=== PATIENT | male | born 1985 | race Caucasian/White ===

== ENCOUNTER 2016-11-02 23:31 | Emergency (ER) | payer OTHER ==
[~2016-11-02] VITALS: Ht 172.7 cm; Wt 118.2 kg
--- OUTSIDE RECORDS SUMMARY | 2016-11-02 23:35 | XMS REPORT | Continuity of Care Document ---
Author Author [facility] Address Unknown Phone Unavailable Allergies Active Description Code Type Severity Reaction Onset Reported/Identified Relationship to Patient Clinical Status Yes cefaclor [id number] Drug Allergy Unknown N/A 03/09/2015 Medications Problems Date Dx Coded Attending Type Code Diagnosis Diagnosed By 03/09/2015 NIYAH LOVE DO Ot 354.0 CARPAL TUNNEL SYNDROME 03/09/2015 NIYAH LOVE DO Ot 729.89 [facility] Procedures Results Encounters ACCT No. Visit Date/Time Discharge Status Pt. Type Provider Facility Loc./Unit Complaint [id number] 03/09/2015 07:58:00 2014 08:33:00 DIS Emergency LOVENIYAH HOOK DO [facility] ED
--- OUTSIDE RECORDS SUMMARY | 2016-11-02 23:38 | XMS REPORT | Continuity of Care Document ---
Author Author [facility] Address Unknown Phone Unavailable Allergies Active Description Code Type Severity Reaction Onset Reported/Identified Relationship to Patient Clinical Status Yes cefaclor [id number] Drug Allergy Unknown N/A 03/09/2015 Medications Problems Date Dx Coded Attending Type Code Diagnosis Diagnosed By 03/09/2015 NIYAH LOVE DO Ot 354.0 CARPAL TUNNEL SYNDROME 03/09/2015 NI[facility] LOVE [facility] Procedures Results Encounters ACCT No. Visit Date/Time Discharge Status Pt. Type Provider Facility Loc./Unit Complaint [id number] 03/09/2015 07:58:00 2014 08:33:00 DIS Emergency LOVENIYAH HOOK DO [facility] ED
--- NOTE | 2016-11-03 01:00 | NUR ---
Pt admitted to ER room 7 with c/o LUQ abd pain with nausea. Pt describes pain as burning with onset mireya. 1800 this evening (11/02). Pt rated pain at 7-8/10. Now reports it has subsided a bit, rates at 3/10.
[2016-11-03] MEDS ORDERED: SODIUM CHLORIDE FLUSH 10 ML SYR IV PRN (01:35)
[2016-11-03] MEDS ORDERED: SODIUM CHLORIDE FLUSH 3 ML SYR IV PRN (01:35)
[2016-11-03 01:55] LABS: BASOPHILS % (AUTO) 0 % (0-2); EOSINOPHILS # (AUTO) 0.1 10^3uL; EOSINOPHILS % (AUTO) 1 % (0-4); LYMPHOCYTES # (AUTO) 1.7 X10^3; MEAN CORPUSCULAR HEMOGLOBIN 29.2 PG (26.0-34.0); MEAN CORPUSCULAR HGB CONC 34.4 g/dL (31.0-37.0); MEAN CORPUSCULAR VOLUME 85 FL (80-100); MEAN PLATELET VOLUME 10.5 FL (6.0-9.5); MONOCYTES # (AUTO) 0.6 X10^3; MONOCYTES % (AUTO) 5 % (3-11); NEUTROPHILS # (AUTO) 7.7 X10^3; NEUTROPHILS % (AUTO) 77 % (51-67); PLATELET COUNT 223 10^3uL (150-450)
[2016-11-03 02:02] LABS: ALBUMIN 4.6 g/dL (3.4-5.0); ANION GAP 18.4 MEQ/L (3-15); CALCULATED IONIZED CALCIUM 3.7 mg/dL (3.8-4.6); TOTAL PROTEIN 8.1 g/dL (6.4-8.5)
[2016-11-03] MEDS ORDERED: ONDANSETRON 2 MG/ML (Z0FRAN) 2 ML VIAL IV ONE (02:50)
[2016-11-03] MEDS ORDERED: HYDROmorphone 1 MG/ML (DILAUDID) SYRINGE IV ONE (02:50)
--- NOTE | 2016-11-03 03:05 | NUR ---
Pt reports pain medication made him feel woozy and head felt clammy. Will monitor.
--- NOTE | 2016-11-03 04:10 | NUR ---
Pt resting with eyes closed, wakes easily. Reports pain is less, rates at 3/10. Denies needs now.
[2016-11-03] MEDS ORDERED: DICYCLOMINE 10 MG (BENTYL) CAP PO ONE (05:00)
[2016-11-03] MEDS ORDERED: ED- ONDANSETRON ODT 4 MG (ZOFRAN) 4 TABLETS/BTL PO ONE (05:00)
[2016-11-03] MEDS ORDERED: ONDA4TAB8 PO (05:02)
[2016-11-03] MEDS ORDERED: DICY20TA10 PO (05:02)
[2016-11-03 06:35] VITALS: BP 132/53
--- NOTE | 2016-11-03 06:36 | NUR ---
Pt dismissed to home with instructions, prepack and electronic prescription. Pt stated his understanding. Denied other needs or concerns. Reported he was feeling much better.
--- NOTE | 2016-11-03 06:56 | Diagnostic Imaging Report ---
PROCEDURE: CT abdomen and pelvis with contrast. TECHNIQUE: Multiple contiguous axial images were obtained through the abdomen and pelvis after administration of intravenous contrast. INDICATION: Upper abdominal pain. COMPARISON: None available. FINDINGS: Lower chest: The lung bases are clear. No pericardial or pleural effusion. Peritoneum: No free intraperitoneal air or fluid. Liver and biliary system: Diffuse hypoattenuation of the liver indicates hepatic steatosis. No focal hepatic lesion. The gallbladder is normal. No biliary duct dilation. Spleen and Pancreas: Spleen is normal. The pancreas enhances normally without mass lesion or peripancreatic inflammatory changes. Adrenals: Normal. tract: The kidneys enhance normally without suspicious mass or obstruction. Urinary bladder is distended without wall thickening. Prostate is not enlarged. GI tract: Stomach is fluid-filled without wall thickening. No bowel obstruction. Multiple of small bowel loops are fluid filled. No pericolonic inflammatory changes. Normal appendix. Vasculature and Lymph nodes: Normal caliber aorta. No abdominal or pelvic lymphadenopathy. Musculoskeletal: No concerning osseous lesion. Normal variant limbic vertebrae at L4. IMPRESSION: 1. Fluid-filled small bowel loops and stomach could relate to gastroenteritis in the appropriate clinical setting. 2. Otherwise, no acute intra-abdominal process. 3. Diffuse hepatic steatosis. 4. Findings are in agreement with the preliminary report. Dictated by: Dictated on workstation # [id number]
--- NOTE | 2016-11-03 08:04 | Diagnostic Imaging Report ---
INDICATION: Abdominal pain. COMPARISON: CT abdomen and pelvis performed subsequently. FINDINGS: No free intraperitoneal air. There are a few gas-filled but nondilated loops of small bowel in the colon. Scattered air-fluid levels in the small bowel are seen on upright imaging. Normal regional skeleton. The lungs are clear. No pleural effusion or pneumothorax. Normal cardiomediastinal silhouette. IMPRESSION: 1. Nonobstructive bowel gas pattern. 2. Scattered air-fluid levels in the small bowel can be seen with enteritis. 3. No acute cardiopulmonary process. Dictated by: Dictated on workstation # [id number]
== END 2016-11-03 06:35 | disposition home or self-care (01) ==
LOC: ED 23:33
DX: K52.9 Noninfective gastroenteritis and colitis, unspecified (principal)
CPT/HCPCS: 36415; 74022; 74177; 80053; 83690; 85025; 96361; 96374; 96375; 99283; J1170; J2405; J7030; Q9967